=== PATIENT | female | born 1975 | race Caucasian/White ===

== ENCOUNTER 2016-08-16 18:14 | Emergency (ER) | payer SELFPAY ==
--- NOTE | 2016-08-16 18:51 | ER Document Report ---
ED Medical Screen (RME) - General Stated Complaint: TONGUE PAIN/SWELLING Notes: Patient states she has having intermittent episodes of tongue ulceration since April. States she had dental work about 5-6 months prior to episodes, so the metal in her mouth was changed by the dentist as a possible allergic reaction. When these ulcers occur, she complains of burning and stinging feeling. Patient states she was also seen by oral surgeon. Was tried on antivirals to see if it would help. Denies shortness of breath or any difficulty swallowing. I have greeted and performed a rapid initial assessment of this patient. A comprehensive ED assessment and evaluation of the patient, analysis of test results and completion of the medical decision making process will be conducted by additional ED providers. TRAVEL OUTSIDE OF THE [place] IN LAST 30 DAYS: No - Related Data Allergies/Adverse Reactions: No Known Allergies Allergy (Verified 08/16/16 18:47) Past Medical History - Immunizations Hx Diphtheria, Pertussis, Tetanus Vaccination: Yes Physical Exam - HEENT Notes: Small ulcerated areas noted to right lateral tongue, also looks like geographic tongue. No swelling to the tongue or oropharynx.
--- NOTE | 2016-08-16 19:56 | ER Document Report ---
ED Oral Problem - General Chief Complaint: Mouth Injury Stated Complaint: TONGUE PAIN/SWELLING Notes: 40 yo female c/o intermittant episodes of tongue ulcerations. tongue feels like its burning. this has been going on for past 5 months. has been seen by oral surgeon, her filling was changed thinking it might be an allergic reaction to the metal. but the symptoms have not improved. pt reports she has a dental appointment in 2 weeks. denies fever. no recent illness. does not use steroid inhalers denies dry eyes or dry mouth TRAVEL OUTSIDE OF THE [place] IN LAST 30 DAYS: No - HPI Quality of pain: Burning Associated symptoms: Tongue swelling, White patches in mouth - Related Data Allergies/Adverse Reactions: No Known Allergies Allergy (Verified 08/16/16 18:47) Past Medical History - General Information source: Patient - Social History Smoking Status: Current Every Day Smoker Chew tobacco use (# tins/day): No Frequency of alcohol use: Occasional Drug Abuse: None Lives with: Family Family History: Reviewed & Not Pertinent Patient has suicidal ideation: No Patient has homicidal ideation: No Renal/ Medical History: Denies: Hx Peritoneal Dialysis - Immunizations Hx Diphtheria, Pertussis, Tetanus Vaccination: Yes Review of Systems - Review of Systems Constitutional: No symptoms reported EENT: No symptoms reported Cardiovascular: No symptoms reported Respiratory: No symptoms reported Gastrointestinal: No symptoms reported Genitourinary: No symptoms reported Female Genitourinary: No symptoms reported Musculoskeletal: No symptoms reported Skin: No symptoms reported Hematologic/Lymphatic: No symptoms reported Neurological/Psychological: No symptoms reported -: Yes All other systems reviewed and negative Physical Exam - Vital signs Vitals: Temp Pulse Resp BP Pulse Ox 97.7 F 85 19 149/74 H 97 08/16/16 18:48 08/16/16 18:48 08/16/16 18:48 08/16/16 18:48 08/16/16 18:48 Interpretation: Normal - General General appearance: Appears well, Alert - HEENT Head: Normocephalic, Atraumatic Eyes: Normal Pupils: PERRL Tympanic membrane: Normal Nasal: Normal Mucous membranes: Normal, Moist - tongue with thick white coating and ulcerations noted to lateral lingual surface. no buccal involvement. OP clear Pharynx: Normal - Respiratory Respiratory status: No respiratory distress Chest status: Nontender Breath sounds: Normal Chest palpation: Normal - Cardiovascular Rhythm: Regular Heart sounds: Normal auscultation Murmur: No - Abdominal Inspection: Normal Distension: No distension Bowel sounds: Normal Tenderness: Nontender Organomegaly: No organomegaly - Back Back: Normal, Nontender - Extremities General upper extremity: Normal inspection, Nontender, Normal color, Normal ROM , Normal temperature General lower extremity: Normal inspection, Nontender, Normal color, Normal ROM , Normal temperature, Normal weight bearing. No: Ana M's sign - Neurological Neuro grossly intact: Yes Cognition: Normal Orientation: AAOx4 Ar[place] Coma Scale Eye Opening: Spontaneous Imtiaz Coma Scale Verbal: Oriented Arrington Coma Scale Motor: Obeys Commands Imtiaz Coma Scale Total: 15 Speech: Normal Motor strength normal: LUE, RUE, LLE, RLE Sensory: Normal - Psychological Associated symptoms: Normal affect, Normal mood - Skin Skin Temperature: Warm Skin Moisture: Dry Skin Color: Normal Course - Vital Signs Vital signs: Temp Pulse Resp BP Pulse Ox 97.7 F 85 19 149/74 H 97 08/16/16 18:48 08/16/16 18:48 08/16/16 18:48 08/16/16 18:48 08/16/16 18:48 Discharge - Discharge Clinical Impression: Tongue ulceration Condition: Stable Disposition: HOME, SELF-CARE Additional Instructions: use magic mouthwash as prescribed follow up with primary care or dental as scheduled for further evaluation and treatment Prescriptions: Nystatin/Dexameth/Diphen [Magic Mouthwash (Omh Formula) Susp] 5 ml PO QID #120 ml
[2016-08-16 20:17] VITALS: BP 135/72
== END 2016-08-16 20:06 | disposition home or self-care (01) ==
LOC: ER 18:14
DX: K14.8 Other diseases of tongue (principal); F17.200 Nicotine dependence, unspecified, uncomplicated
CPT/HCPCS: 99282